=== PATIENT | male | born 1955 | race Caucasian/White ===

== ENCOUNTER 2017-05-22 10:36 | Day surgery (SDC) | payer OTHER ==
[~2017-05-22] VITALS: Ht 177.8 cm; Wt 88.0 kg
[~2017-05-22 10:36] MED LIST: ACETAMINOPHEN 325 MG TAB PO PRN; ACETYLCHOLINE OPHTH SOLN 1% 2ML (MIOCHOL-E) As Ordered ONE; BALANCED SALT IRRIGATION SOLUTION 500ML BAG (FOR OR EYE MACHINE) As Ordered ONE; CEFUROXIME 1MG/0.1ML INTRACAMERAL INJ As Ordered ONE; COZA100T2 PO; CYCLOPENTOLATE 2% OPHTH SOLN 2ML BTL XX ONE; HEALON DUET (HEALON 10MG/ML 0.55ML & HEALON ENDOCOAT 30MG/ML 0.85ML) As Ordered ONE; LIDOCAINE 1% SDV 5 ML VIAL As Ordered ONE; LIDOCAINE 3.5 % 1ML OPHTH TOPICAL GEL OU ONE; NITR0.4S14 SL; NOVO1INJ4 SQ; NOVOINJ14 SQ; OFLOXACIN 0.3 % (OCUFLOX) OPTH SOL 5ML XX ONE; PHENYLEPHRINE 2.5% OPHTH SOL 2ML XX ONE; POVIDONE-IODINE 5% OPHTH PREP SOL 30ML As Ordered ONE; PROPARACAINE 0.5% OPHTH SOL 15ML OS PRN; TROPICAMIDE 1% OPHTH SOLN 2ML XX ONE
[2017-05-22] MEDS ORDERED: LR 1,000 ML IV ONE (10:45)
[2017-05-22] MEDS ORDERED: MIDAZOLAM INJ 2 MG/2 ML VIAL (J2250) As Ordered ONE ×2 (12:54→13:04)
[2017-05-22] MEDS ORDERED: fentaNYL 100 MCG/2 ML INJECTION (J3010) As Ordered ONE (13:04)
[2017-05-22] MEDS ORDERED: HEALON DUET (HEALON 10MG/ML 0.55ML & HEALON ENDOCOAT 30MG/ML 0.85ML) As Ordered ONE (13:17)
[2017-05-22] MEDS ORDERED: TRIMETHOBENZAMIDE 300 MG CAP PO PRN (14:00)
[2017-05-22] MEDS ORDERED: KETOROLAC 0.5% OPHTH SOLN OS ONE (14:00)
[2017-05-22] MEDS ORDERED: AcetaZOLAMIDE 500 MG ER CAP PO ONE (14:00)
[2017-05-22 16:25] VITALS: BP 142/87
--- NOTE | 2017-05-22 16:48 | RO ---
DATE OF PROCEDURE: 05/22/2017 PREPROCEDURE DIAGNOSES: Dense nuclear cataract, age-related, left eye. POSTPROCEDURE DIAGNOSES: Dense nuclear cataract, age-related, left eye. PROCEDURE PERFORMED: Phacoemulsification and posterior chamber intraocular lens implantation left eye. The lens used was AU00T0, 18.0 diopters. SURGEON: Maricruz Villeda MD [employer]: ANESTHESIA: Topical with sedation. DESCRIPTION OF PROCEDURE: The patient was prepped and draped in the usual fashion. A lid speculum was placed between the lids. The eye was fixated. A stab incision was made to the anterior chamber, and 1% non-preserved lidocaine was instilled. Then, viscoelastic was instilled. The eye was re-fixated. A 2.75 mm sapphire keratome was used to make a clear corneal temporal limbal incision. Capsulorrhexis was begun with a 30-gauge bent needle and then carried out in a circular fashion with capsulorrhexis forceps. The lens was hydrodissected, and then the phacoemulsification unit was used to make a groove in the nucleus in two meridians. The nucleus was then cracked into four quadrants. Each quadrant was removed with the phacoemulsification unit. Any remaining cortex was removed with the irrigation and aspiration (I and A) unit. Capsular bag was refilled with viscoelastic. A posterior chamber intraocular lens was placed in the capsular bag without difficulty. Any remaining viscoelastic was removed with the I and A unit. The wound was hydrated, and Miochol and cefuroxime were instilled into the anterior chamber. The patient tolerated the procedure well and went to the recovery room in stable condition.
== END 2017-05-22 16:30 | disposition home or self-care (01) ==
LOC: M SDC 10:36
PROVIDERS: ATTEND Ophthalmology
DX: H25.12 Age-related nuclear cataract, left eye (principal); I20.9 Angina pectoris, unspecified; I10 Essential (primary) hypertension; E10.9 Type 1 diabetes mellitus without complications; M51.9 Unspecified thoracic, thoracolumbar and lumbosacral intervertebral disc disorder; Z88.4 Allergy status to anesthetic agent; Z91.030 Bee allergy status; Z79.899 Other long term (current) drug therapy; Z79.4 Long term (current) use of insulin
CPT/HCPCS: 66984; J2250; J3010; V2632

== ENCOUNTER 2017-06-19 06:45 | Day surgery (SDC) | payer OTHER ==
[~2017-06-19] VITALS: Ht 177.8 cm; Wt 88.0 kg
[~2017-06-19 06:45] MED LIST changes: -ACETAMINOPHEN 325 MG TAB PO PRN; -CYCLOPENTOLATE 2% OPHTH SOLN 2ML BTL XX ONE; -LIDOCAINE 3.5 % 1ML OPHTH TOPICAL GEL OU ONE; -OFLOXACIN 0.3 % (OCUFLOX) OPTH SOL 5ML XX ONE; -PHENYLEPHRINE 2.5% OPHTH SOL 2ML XX ONE; -PROPARACAINE 0.5% OPHTH SOL 15ML OS PRN; -TROPICAMIDE 1% OPHTH SOLN 2ML XX ONE
[2017-06-19] MEDS ORDERED: LR 500 ML IV SCH (07:00)
[2017-06-19] MEDS ORDERED: fentaNYL 100 MCG/2 ML INJECTION (J3010) As Ordered ONE (07:26)
[2017-06-19] MEDS ORDERED: MIDAZOLAM INJ 2 MG/2 ML VIAL (J2250) As Ordered ONE (07:26)
== END 2017-06-19 07:15 | disposition home or self-care (01) ==
LOC: M SDC 06:45
PROVIDERS: ATTEND Ophthalmology
DX: Z53.09 Procedure and treatment not carried out because of other contraindication (principal)

== ENCOUNTER 2020-03-29 13:14 | Emergency (ER) | payer MEDICARE, OTHER ==
[~2020-03-29] VITALS: Ht 177.8 cm; Wt 88.6 kg
[~2020-03-29 13:14] MED LIST changes: -ACETYLCHOLINE OPHTH SOLN 1% 2ML (MIOCHOL-E) As Ordered ONE; -BALANCED SALT IRRIGATION SOLUTION 500ML BAG (FOR OR EYE MACHINE) As Ordered ONE; -CEFUROXIME 1MG/0.1ML INTRACAMERAL INJ As Ordered ONE; -HEALON DUET (HEALON 10MG/ML 0.55ML & HEALON ENDOCOAT 30MG/ML 0.85ML) As Ordered ONE; -LIDOCAINE 1% SDV 5 ML VIAL As Ordered ONE; -POVIDONE-IODINE 5% OPHTH PREP SOL 30ML As Ordered ONE
[2020-03-29] MEDS ORDERED: LABE10TAB (13:25)
[2020-03-29] MEDS ORDERED: CIPR-249 PO (15:51)
[2020-03-29] MEDS ORDERED: CIPROFLOXACIN 500MG TABLET PO ONE (16:00)
[2020-03-29 16:04] VITALS: BP 155/96
== END 2020-03-29 16:17 | disposition home or self-care (01) ==
LOC: M ED 13:14
DX: N30.90 Cystitis, unspecified without hematuria (principal); Z96.0 Presence of urogenital implants